=== PATIENT | female | born 1945 | race Caucasian/White ===

== ENCOUNTER 2020-04-08 17:07 | Emergency (ER) | payer MEDICAID, MEDICARE ==
[~2020-04-08] VITALS: Ht 165.1 cm; Wt 68.2 kg
[~2020-04-08 17:07] MED LIST: CEPH500 PO; ESCI-8 PO
[2020-04-08 17:29] LABS: GLUCOSE,POINT OF CARE 106 MG/DL (70-110)
[2020-04-08] MEDS ORDERED: FAMOTIDINE 20 MG TABLET PO ONE (19:00)
[2020-04-08 19:18] LABS: BASOPHILS % (AUTO) 0.4 % (0.0-2.0); EOSINOPHILS % (AUTO) 2.5 % (1.0-6.0); HEMOGLOBIN 13.4 g/dL (12.0-16.0); LYMPHOCYTES # (AUTO) 1.8 K/uL (1.0-4.8); MEAN CORPUSCULAR HEMOGLOBIN 29.6 pg (26.0-34.0); MEAN CORPUSCULAR HGB CONC 32.7 G/dL (31.0-37.0); MEAN CORPUSCULAR VOLUME 90 fL (80-100); MONOCYTES # (AUTO) 0.4 K/uL (0.1-1.0); MONOCYTES % (AUTO) 7.2 % (2.0-9.0); NEUTROPHILS # (AUTO) 3.4 K/uL (1.8-7.7); NEUTROPHILS % (AUTO) 58.9 % (40.0-70.0); PLATELET COUNT (AUTO) 232 K/uL (150-450); RED BLOOD CELL COUNT(AUTO) 4.54 MIL/uL (4.00-5.20); RED CELL DISTRIBUTION WIDTH 14.6 % (11.5-14.5)
[2020-04-08 19:31] LABS: ANION GAP 6 mmol/L (8-16); CALCIUM, TOTAL 8.9 mg/dL (8.8-10.5); CARBON DIOXIDE 30 mmol/L (22-29); CHLORIDE 101 mmol/L (98-107); GLUCOSE,RANDOM 111 mg/dL (70-110); POTASSIUM 3.6 mmol/L (3.5-5.1); SODIUM SERUM 137 mmol/L (136-145); UREA NITROGEN, BLOOD 12 mg/dL (7-18)
[2020-04-08 19:35] LABS: ALANINE AMINOTRANSFERASE 34 U/L (12-78); ALBUMIN 3.7 g/dL (3.4-5.0); ALKALINE PHOSPHATASE 126 U/L (46-116); ASPARTATE AMINOTRANSFERASE 23 U/L (15-37); BILIRUBIN,TOTAL 0.5 mg/dL (0.1-1.0); LIPASE 68 U/L (73-393); TOTAL PROTEIN, SERUM 8.2 g/dL (6.4-8.2)
[2020-04-08 19:36] LABS: GLOMERULAR FILTR. RATE CALC > 60 mL/min (>60)
[2020-04-08 19:39] VITALS: BP 177/78
== END 2020-04-08 20:07 | disposition home or self-care (01) ==
LOC: EMS 17:07
DX: R10.9 Unspecified abdominal pain (principal)
CPT/HCPCS: 74176; 93005

== ENCOUNTER 2020-12-01 14:07 | Emergency (ER) | payer MEDICARE ==
[~2020-12-01] VITALS: Ht 157.5 cm; Wt 61.4 kg
[~2020-12-01 14:07] MED LIST changes: -CEPH500 PO
[2020-12-01] MEDS ORDERED: ACETAMINOPHEN/CODEINE 300-30 MG TABLET PO ONE (19:00)
[2020-12-01 19:01] VITALS: BP 176/79
== END 2020-12-01 19:05 | disposition home or self-care (01) ==
LOC: EMS 14:10
DX: M54.9 Dorsalgia, unspecified (principal)
CPT/HCPCS: 99283

== ENCOUNTER 2020-12-06 09:13 | Emergency (ER) | payer MEDICARE ==
[~2020-12-06] VITALS: Ht 160 cm; Wt 63.6 kg
[2020-12-06] MEDS ORDERED: HYDR25TA2 PO (09:19)
[2020-12-06] MEDS ORDERED: ONDANSETRON HCL 4 MG TABLET PO ONE (09:45)
[2020-12-06] MEDS ORDERED: ACETAMINOPHEN 325 MG TABLET PO ONE (09:45)
[2020-12-06 09:57] LABS: ANION GAP 8 mmol/L (8-16); BASOPHILS % (AUTO) 0.3 % (0.0-2.0); CALCIUM, TOTAL 9.3 mg/dL (8.8-10.5); CARBON DIOXIDE 30 mmol/L (22-29); CHLORIDE 101 mmol/L (98-107); CREATININE 0.84 mg/dL (0.60-1.30); GLUCOSE,RANDOM 98 mg/dL (70-110); HEMATOCRIT 41.7 % (36-46); HEMOGLOBIN 13.8 g/dL (12.0-16.0); LYMPHOCYTES # (AUTO) 1.5 K/uL (1.0-4.8); LYMPHOCYTES % (AUTO) 30.1 % (22.0-44.0); MEAN CORPUSCULAR HEMOGLOBIN 29.3 pg (26.0-34.0); MEAN CORPUSCULAR HGB CONC 33.1 G/dL (31.0-37.0); MEAN CORPUSCULAR VOLUME 89 fL (80-100); MONOCYTES # (AUTO) 0.3 K/uL (0.1-1.0); MONOCYTES % (AUTO) 6.8 % (2.0-9.0); NEUTROPHILS # (AUTO) 2.9 K/uL (1.8-7.7); NEUTROPHILS % (AUTO) 59.8 % (40.0-70.0); PLATELET COUNT (AUTO) 208 K/uL (150-450); POTASSIUM 3.8 mmol/L (3.5-5.1); RED CELL DISTRIBUTION WIDTH 14.6 % (11.5-14.5); SODIUM SERUM 139 mmol/L (136-145); UREA NITROGEN, BLOOD 16 mg/dL (7-18)
[2020-12-06 09:58] LABS: GLOMERULAR FILTR. RATE CALC > 60 mL/min (>60)
[2020-12-06 10:02] LABS: ALANINE AMINOTRANSFERASE 28 U/L (12-78); ALBUMIN 3.7 g/dL (3.4-5.0); ALKALINE PHOSPHATASE 110 U/L (46-116); ASPARTATE AMINOTRANSFERASE 21 U/L (15-37); BILIRUBIN,TOTAL 0.5 mg/dL (0.1-1.0); LIPASE 84 U/L (73-393)
[2020-12-06 10:36] VITALS: BP 144/79
== END 2020-12-06 10:38 | disposition home or self-care (01) ==
LOC: EMS 09:13
DX: R11.2 Nausea with vomiting, unspecified (principal); R51.9 Headache, unspecified
CPT/HCPCS: 36415; 80053; 83690; 85025; 99283; Q0162

== ENCOUNTER 2021-04-14 10:48 | Emergency (ER) | payer MEDICARE ==
[~2021-04-14] VITALS: Ht 152.4 cm; Wt 73.6 kg
[~2021-04-14 10:48] MED LIST changes: -ESCI-8 PO; +HYDR25TA2 PO
[2021-04-14 10:54] VITALS: BP 168/84
[2021-04-14] MEDS ORDERED: CYCLOBENZAPRINE HCL 10 MG TABLET PO ONE (12:15)
[2021-04-14] MEDS ORDERED: GABAPENTIN 300 MG CAPSULE PO ONE (12:15)
[2021-04-14] MEDS ORDERED: KETOROLAC TROMETHAMINE 30 MG/ML VIAL IM ONE (12:15)
[2021-04-14] MEDS ORDERED: GABA-1181 PO (14:30)
[2021-04-14] MEDS ORDERED: CYCL10TA17 PO (14:30)
[2021-04-14] MEDS ORDERED: NAPR-1025 PO (14:30)
== END 2021-04-14 14:37 | disposition home or self-care (01) ==
LOC: EMS 10:51
DX: S13.4XXA Sprain of ligaments of cervical spine, initial encounter (principal); M62.838 Other muscle spasm; I10 Essential (primary) hypertension; Z79.899 Other long term (current) drug therapy; V49.59XA Passenger injured in collision with other motor vehicles in traffic accident, initial encounter; Y93.89 Activity, other specified; Y92.89 Other specified places as the place of occurrence of the external cause; Y99.8 Other external cause status
CPT/HCPCS: 72040; 96372; 99283; J1885

== ENCOUNTER 2021-09-13 16:04 | Emergency (ER) | payer MEDICARE ==
[~2021-09-13] VITALS: Ht 160 cm; Wt 63.6 kg
[~2021-09-13 16:04] MED LIST changes: +CYCL-448 PO; +GABA-1181 PO; +HYDR-4870 PO; -HYDR25TA2 PO; +NAPR-1025 PO
[2021-09-13 17:53] VITALS: BP 155/111
== END 2021-09-13 18:08 | disposition home or self-care (01) ==
LOC: EMS 16:04
DX: F43.0 Acute stress reaction (principal); F41.8 Other specified anxiety disorders; Z79.899 Other long term (current) drug therapy
CPT/HCPCS: 93005; 99284; Z7502